=== PATIENT | male | born 1970 | race Caucasian/White ===

== ENCOUNTER 2017-07-19 12:09 | Inpatient (IN) | payer BC, OTHER ==
[~2017-07-19] VITALS: Ht 190.5 cm; Wt 95.3 kg
[2017-07-19] MEDS ORDERED: DICYCLOMINE HCL 20 MG TABLET PO PRN (13:00)
[2017-07-19] MEDS ORDERED: MAG HYDROX/AL HYDROX/SIMETH 30 ML LIQUID UDC PO PRN (13:00)
[2017-07-19] MEDS ORDERED: MIRALAX 17 GM POWD.PACK PO PRN (13:00)
[2017-07-19] MEDS ORDERED: IBUPROFEN 600 MG TABLET PO PRN (13:00)
[2017-07-19] MEDS ORDERED: ACETAMINOPHEN 325 MG TABLET PO PRN (13:00)
[2017-07-19] MEDS ORDERED: LORAZEPAM 2 MG/1 ML VIAL IM PRN (13:00)
[2017-07-19] MEDS ORDERED: LOPERAMIDE HCL 2 MG CAPSULE PO PRN (13:00)
[2017-07-19] MEDS ORDERED: METHOCARBAMOL 750 MG TABLET PO PRN (13:30)
[2017-07-19] MEDS ORDERED: THIAMINE HCL 200 MG/2 ML VIAL IM ONE (14:00)
[2017-07-19] MEDS: LORAZEPAM 1 MG TABLET PO SCH ×2 (14:39→21:28)
[2017-07-19] MEDS: ONDANSETRON ODT 4 MG TAB.RAPDIS SL PRN ×2 (14:51→21:05)
[2017-07-19 14:52] LABS: BASOPHILS % (AUTO) 0.3 % (0.0-2.0); EOSINOPHILS # (AUTO) 0.1 K/uL (0.0-0.7); HEMATOCRIT 47.1 % (36.7-47.1); HEMOGLOBIN 16.1 g/dL (12.5-16.3); LYMPHOCYTES # (AUTO) 2.9 K/uL (20.0-40.0); LYMPHOCYTES % (AUTO) 34.8 % (20.5-51.5); MEAN CORPUSCULAR HEMOGLOBIN 30.3 uug (23.8-33.4); MEAN CORPUSCULAR HGB CONC 34 g/dL (32.5-36.3); MEAN CORPUSCULAR VOLUME 88.5 fL (73.0-96.2); MONOCYTES # (AUTO) 0.7 K/uL (2.0-10.0); MONOCYTES % (AUTO) 8.6 % (0.0-11.0); NEUTROPHILS # (AUTO) 4.6 K/uL (1.8-8.9); NEUTROPHILS % (AUTO) 55.3 % (38.5-71.5); PLATELET COUNT (AUTO) 224 K/uL (152-348); RED BLOOD CELL COUNT(AUTO) 5.32 MIL/uL (4.06-5.63); WHITE BLOOD COUNT (AUTO) 8.3 K/uL (3.6-10.2)
[2017-07-19 14:55] LABS: BILIRUBIN,TOTAL 0.9 mg/dL (0.2-1.0); CREATININE 1.1 mg/dL (0.6-1.3); POTASSIUM 3.3 mmol/L (3.5-5.1); TOTAL PROTEIN, SERUM 7.5 g/dL (6.4-8.2)
[2017-07-19] MEDS: hydrALAZINE HCL 50 MG TABLET PO PRN ×2 (15:03→22:10)
[2017-07-19] MEDS ORDERED: CARV12.52 PO (15:10)
[2017-07-19] MEDS ORDERED: BENA20TA2 PO (15:11)
[2017-07-19] MEDS ORDERED: POTASSIUM CHLORIDE 10 MEQ CAPSULE.SA PO ONE (15:15)
[2017-07-19 15:35] LABS: *AMPHETAMINE, URINE NEGATIVE (NEGATIVE); *BARBITURATE, URINE NEGATIVE (NEGATIVE); *CANNABINOID, URINE NEGATIVE (NEGATIVE); *COCCAINE, URINE NEGATIVE (NEGATIVE); *OPIATE, URINE NEGATIVE (NEGATIVE); *PHENCYCLIDINE SCREEN,URINE NEGATIVE (NEGATIVE)
[2017-07-19] MEDS: LORAZEPAM 1 MG TABLET PO PRN ×2 (17:12→23:19)
[2017-07-19 20:11] VITALS: BP 136/105
[2017-07-19] MEDS: diphenhydrAMINE 50 MG CAPSULE PO PRN (23:15)
[2017-07-20 00:19] VITALS: BP 134/91
[2017-07-20 04:10] VITALS: BP 132/87
[2017-07-20 08:00] VITALS: BP 139/112
[2017-07-20] MEDS: DOCUSATE SODIUM 250 MG CAPSULE PO SCH (08:10)
[2017-07-20] MEDS: THIAMINE HCL 100 MG TABLET PO SCH (08:11)
[2017-07-20] MEDS: CARVEDILOL 12.5MG PO SCH (08:11)
[2017-07-20] MEDS: BENAZEPRIL 20 MG PO SCH (08:11)
[2017-07-20] MEDS: FOLIC ACID 1 MG TABLET PO SCH (08:11)
[2017-07-20] MEDS: MULTIVITAMINS,THERAPEUTIC TABLET PO SCH (08:11)
[2017-07-20] MEDS: LORAZEPAM 1 MG TABLET PO PRN ×2 (08:18→14:40)
[2017-07-20] MEDS ORDERED: TUBERCULIN,PURIF.PROT.DERIV. 5 TU/0.1 ML TEST ID ONE (09:00)
[2017-07-20] MEDS: ONDANSETRON 4 MG/2 ML VIAL IM PRN (09:15)
[2017-07-20 12:00] VITALS: BP 102/63
[2017-07-20 13:06] LABS: HEPATITIS B SURFACE AG Negative (Negative)
[2017-07-20 16:00] VITALS: BP 117/70
[2017-07-20] MEDS: LOPERAMIDE HCL 2 MG CAPSULE PO PRN (17:03)
[2017-07-20 20:00] VITALS: BP 110/86
[2017-07-20] MEDS ORDERED: LORAZEPAM 1 MG TABLET PO SCH (21:00)
[2017-07-20] MEDS: diphenhydrAMINE 50 MG CAPSULE PO PRN (21:49)
[2017-07-21 08:00] VITALS: BP 131/99
[2017-07-21] MEDS: ESCITALOPRAM OXALATE 10 MG TABLET PO SCH (08:25)
[2017-07-21] MEDS: FOLIC ACID 1 MG TABLET PO SCH (08:26)
[2017-07-21] MEDS: CARVEDILOL 12.5MG PO SCH (08:26)
[2017-07-21] MEDS: THIAMINE HCL 100 MG TABLET PO SCH (08:26)
[2017-07-21] MEDS: BENAZEPRIL 20 MG PO SCH (08:26)
[2017-07-21] MEDS: MULTIVITAMINS,THERAPEUTIC TABLET PO SCH (08:26)
[2017-07-21] MEDS: LORAZEPAM 1 MG TABLET PO PRN (08:32)
[2017-07-21] MEDS: DOCUSATE SODIUM 250 MG CAPSULE PO SCH (08:33)
[2017-07-21 12:00] VITALS: BP 93/61
[2017-07-21] MEDS: LORAZEPAM 1 MG TABLET PO SCH ×2 (12:08→16:33)
[2017-07-21 16:00] VITALS: BP 139/88
[2017-07-21 20:00] VITALS: BP 133/94
[2017-07-21] MEDS ORDERED: LORAZEPAM 1 MG TABLET PO SCH (21:00)
[2017-07-21] MEDS: ONDANSETRON ODT 4 MG TAB.RAPDIS SL PRN (21:06)
[2017-07-21] MEDS: diphenhydrAMINE 50 MG CAPSULE PO PRN (21:06)
[2017-07-22] VITALS: BP 130/87
[2017-07-22 04:00] VITALS: BP 132/82
[2017-07-22 08:00] VITALS: BP 124/57
[2017-07-22] MEDS: ESCITALOPRAM OXALATE 10 MG TABLET PO SCH (08:15)
[2017-07-22] MEDS: CARVEDILOL 12.5MG PO SCH (08:16)
[2017-07-22] MEDS: FOLIC ACID 1 MG TABLET PO SCH (08:16)
[2017-07-22] MEDS: BENAZEPRIL 20 MG PO SCH (08:16)
[2017-07-22] MEDS: LORAZEPAM 1 MG TABLET PO SCH ×3 (08:16→21:51)
[2017-07-22] MEDS: THIAMINE HCL 100 MG TABLET PO SCH (08:16)
[2017-07-22] MEDS: MULTIVITAMINS,THERAPEUTIC TABLET PO SCH (08:16)
[2017-07-22] MEDS: LOPERAMIDE HCL 2 MG CAPSULE PO PRN ×2 (08:30→14:03)
[2017-07-22] MEDS: ONDANSETRON ODT 4 MG TAB.RAPDIS SL PRN (08:30)
[2017-07-22] MEDS: DOCUSATE SODIUM 250 MG CAPSULE PO SCH (08:31)
[2017-07-22] MEDS: BUPRENORPHINE HCL 2 MG TAB.SUBL SL SCH ×3 (11:13→21:52)
[2017-07-22 12:00] VITALS: BP 130/88
[2017-07-22] MEDS: DICYCLOMINE HCL 20 MG TABLET PO SCH ×2 (14:03→21:50)
[2017-07-22] MEDS: ONDANSETRON 4 MG/2 ML VIAL IM PRN (14:41)
[2017-07-22 16:00] VITALS: BP 136/76
[2017-07-22] MEDS ORDERED: IV D5 1/2 NS 1000 ML 1,000 ML IV PRN (16:00)
[2017-07-22] MEDS ORDERED: PROMETHAZINE HCL 25 MG/1 ML VIAL IM PRN (16:00)
[2017-07-22] MEDS ORDERED: BUPRENORPHINE HCL 2 MG TAB.SUBL SL PRN ×2 (17:45)
[2017-07-22 20:00] VITALS: BP 118/71
[2017-07-23 08:00] VITALS: BP 131/96
[2017-07-23 08:01] LABS: BILIRUBIN,DIRECT 0.1 mg/dL (0.0-0.2); BILIRUBIN,TOTAL 0.4 mg/dL (0.2-1.0); CREATININE 1.2 mg/dL (0.6-1.3); MAGNESIUM 1.6 mg/dL (1.8-2.4); PHOSPHOROUS 5.3 mg/dL (2.5-4.9); POTASSIUM 3.7 mmol/L (3.5-5.1); TOTAL PROTEIN, SERUM 6.4 g/dL (6.4-8.2)
[2017-07-23] MEDS: FOLIC ACID 1 MG TABLET PO SCH (08:09)
[2017-07-23] MEDS: DICYCLOMINE HCL 20 MG TABLET PO SCH ×3 (08:09→21:56)
[2017-07-23] MEDS: ESCITALOPRAM OXALATE 10 MG TABLET PO SCH (08:09)
[2017-07-23] MEDS: MULTIVITAMINS,THERAPEUTIC TABLET PO SCH (08:09)
[2017-07-23] MEDS: DOCUSATE SODIUM 250 MG CAPSULE PO SCH (08:10)
[2017-07-23] MEDS: BENAZEPRIL 20 MG PO SCH (08:11)
[2017-07-23] MEDS: CARVEDILOL 12.5MG PO SCH (08:11)
[2017-07-23] MEDS ORDERED: LORAZEPAM 1 MG TABLET PO SCH (09:00)
[2017-07-23] MEDS ORDERED: BUPRENORPHINE HCL 2 MG TAB.SUBL SL SCH (09:00)
[2017-07-23] MEDS: THIAMINE HCL 100 MG TABLET PO SCH (09:07)
[2017-07-23 12:00] VITALS: BP 138/73
[2017-07-23] MEDS ORDERED: MAGNESIUM OXIDE 400 MG TABLET PO ONE ×2 (14:15→15:00)
[2017-07-23 16:00] VITALS: BP 132/66
[2017-07-23] MEDS ORDERED: METH-406 PO (17:16)
[2017-07-23] MEDS ORDERED: ESCI10TA PO (17:16)
[2017-07-23] MEDS ORDERED: IBUP-1955 PO (17:16)
[2017-07-23] MEDS ORDERED: ONDA4TAB11 SL (17:16)
[2017-07-23] MEDS ORDERED: DIPH50CA37 PO (17:16)
[2017-07-23] MEDS ORDERED: DICY20TA28 PO (17:16)
[2017-07-23 20:00] VITALS: BP 112/72
[2017-07-24] VITALS: BP 143/85
[2017-07-24 04:00] VITALS: BP 128/82
[2017-07-24 08:00] VITALS: BP 126/98
[2017-07-24] MEDS: MULTIVITAMINS,THERAPEUTIC TABLET PO SCH (08:20)
[2017-07-24] MEDS: ESCITALOPRAM OXALATE 10 MG TABLET PO SCH (08:20)
[2017-07-24] MEDS: FOLIC ACID 1 MG TABLET PO SCH (08:20)
[2017-07-24] MEDS: ONDANSETRON ODT 4 MG TAB.RAPDIS SL PRN (08:20)
[2017-07-24] MEDS: BENAZEPRIL 20 MG PO SCH (08:20)
[2017-07-24] MEDS: THIAMINE HCL 100 MG TABLET PO SCH (08:20)
[2017-07-24] MEDS: DICYCLOMINE HCL 20 MG TABLET PO SCH (08:20)
[2017-07-24] MEDS: CARVEDILOL 12.5MG PO SCH (08:20)
[2017-07-24] MEDS ORDERED: HYDROXYZINE PAMOATE 25 MG CAPSULE PO PRN (11:30)
[2017-07-24 12:00] VITALS: BP 101/58
== END 2017-07-24 12:05 | disposition other institution (70) | DRG 895 ==
LOC: SRC 12:19
PROVIDERS: ADMIT Internal Medicine; ATTEND Internal Medicine
PROC: HZ2ZZZZ Detoxification Services for Substance Abuse Treatment (ICD-10-PCS; principal; 2017-07-19)
PROC: HZ41ZZZ Group Counseling for Substance Abuse Treatment, Behavioral (ICD-10-PCS; 2017-07-21)
PROC: HZ31ZZZ Individual Counseling for Substance Abuse Treatment, Behavioral (ICD-10-PCS; 2017-07-22)
DX: F10.239 Alcohol dependence with withdrawal, unspecified (principal); K70.10 Alcoholic hepatitis without ascites; I15.9 Secondary hypertension, unspecified; F31.9 Bipolar disorder, unspecified; F11.20 Opioid dependence, uncomplicated; E87.6 Hypokalemia; F10.229 Alcohol dependence with intoxication, unspecified; Y90.7 Blood alcohol level of 200-239 mg/100 ml; G89.29 Other chronic pain; G47.00 Insomnia, unspecified; G47.33 Obstructive sleep apnea (adult) (pediatric); Z81.8 Family history of other mental and behavioral disorders; M54.5 Low back pain
CPT/HCPCS: 36415; 70030-TC; 80307; 83735; 84100; 85025; 86580; 86592; 86705; 86803; 87340; 87806; A4663; G0480; J2405; J2550; J3411; Q0162; Q0163